=== PATIENT | female | born 1950 | race Caucasian/White ===

== ENCOUNTER 2025-04-18 13:23 | Outpatient (CLI) | payer MEDICARE, OTHER ==
[2025-04-11 12:26] LABS: CREATININE 0.65 MG/DL (0.40-0.90); TOTAL CARBON DIOXIDE 30.9 MMOL/L (24-32); eGFR 89 ML/MIN
[~2025-04-18 13:23] MED LIST: iohexol 300mg/ml 100ml inj. ONE
--- NOTE | 2025-04-18 15:25 | RADIOLOGY REPORT ---
CONTRAST ENHANCED CHEST COMPUTERIZED TOMOGRAPHY REASON FOR STUDY: Chronic cough COMPARISON: None TECHNIQUE: Axial CT images of the chest were obtained after the uneventful intravenous administration of contrast. 2-D coronal and sagittal reformatted images were provided. Radiation optimization: All CT scans at this facility use at least one of these dose optimization techniques: Automated exposure control mA and/or kV adjustment per patient size (includes targeted exams where dose is matched to clinical indication) or iterative reconstruction. RADIATION DOSE: CTDI: 10 mGy DLP: 355 mGy-cm CONTRAST: 100 mL omnipaque 300 FINDINGS: There is a 6 mm pleural-based nodule in the posterior right upper lobe (series 3, image 15 of 83). There is mild interlobular septal thickening. There is mild platelike atelectasis in the dependent lingula. There is minimal dependent atelectasis in bilateral lower lobes of the lungs. There is no bronchiectasis or honeycombing. There is a tiny cluster of tree-in-bud nodularity in the anterolateral right upper lobe, likely of infectious or inflammatory etiology. There is no significant bronchial wall thickening. There is no pleural effusion. There is no pericardial effusion. The heart is within normal limits for size. There is no thoracic aortic dissection. The ascending aorta is borderline enlarged at 4.0 cm. There is no large central pulmonary embolism. No pathologic lymphadenopathy is identified by size criteria. There is mild age-indeterminate compression deformity of T7 vertebral body. IMPRESSION: There is a 6 mm pleural-based nodule in the posterior right upper lobe. The Fleischner society guidelines are listed below for follow-up recommendation reference. There is a solitary tiny cluster of tree-in-bud nodularity in the anterolateral right upper lobe, likely of infectious or inflammatory etiology. 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 Age-indeterminate mild compression deformity of T7 vertebral body. Correlate clinically for chronicity of back pain. MRI can be performed if clinically indicated.
== END 2025-04-18 23:59 | disposition home or self-care (01) ==
LOC: RAD 13:23
PROVIDERS: ATTEND Nurse Practitioner Family
DX: R91.8 Other nonspecific abnormal finding of lung field (principal); K74.69 Other cirrhosis of liver; R05.3 Chronic cough; R19.8 Other specified symptoms and signs involving the digestive system and abdomen; M43.8X4 Other specified deforming dorsopathies, thoracic region
CPT/HCPCS: 36415; 71260; 80053; Q9967